=== PATIENT | male | born 1980 | race Caucasian/White ===

== ENCOUNTER 2023-05-08 17:16 | Emergency (ER) | payer OTHER, MEDICAID, SELFPAY ==
[2023-05-08 17:19] VITALS: BP 128/83; PULSE 88; RESP 16; TEMP 36.6; O2SAT 97; BMI 29.0
--- NOTE | 2023-05-08 18:12 | ED.SKABFB ---
HPI - Skin/Abscess/Foreign Bdy General Chief complaint: Skin/Abscess/Foreign Body Stated complaint: Facial problem, Infected hair Time Seen by Provider: 05/08/23 17:58 Source: patient Mode of arrival: Ambulatory History of Present Illness HPI narrative: 43-year-old male nonsmoker with history of multiple prior skin infections presents with a recurrence of a small area of painful red skin on the right side of his cheek. He states that he is had this multiple times off and on for the past year and historically lead improves with doxycycline. At 1 point he had been put on mupirocin which seemed to help somewhat as well. He was most recently on doxycycline a few weeks ago. He has been seen by Dermatology in the past but not recently. He denies any trauma or injury. Denies any fever, chills nor nausea or vomiting. Related Data Previous Rx's Medication Instructions Recorded doxycycline hyclate 100 mg tablet 100 mg PO BID #40 tabs 05/08/23 Allergies Allergy/AdvReac Type Severity Reaction Status Date / Time No Known Drug Allergies Allergy Verified 05/08/23 17:19 Review of Systems Review of Systems Narrative: GENERAL: Denies chills, fatigue, malaise, fever, sweats. HEENT: Denies sinus pain, ear pain, sore throat, difficulty swallowing, dizziness. RESPIRATORY: Denies dyspnea, cough, wheezing, hemoptysis, sputum. CARDIOVASCULAR: Denies chest pain, palpitations, orthopnea, edema, GASTROINTESTINAL: Denies nausea, vomiting, abdominal pain, diarrhea, constipation, melena. : Denies dysuria, frequency, incontinence, hematuria, urinary retention. MUSCULOSKELETAL: denies weakness, joint pain, or bony pain SKIN: See HPI NEUROLOGIC: Denies weakness, headache, numbness, change in speech, confusion, seizures, incoordination. PSYCHIATRIC: No concerning psychosocial issues. 12 point review of systems is negative except for those stated above Patient History Social History Smoking Status: Never smoker Smoking Status: Never smoker alcohol intake frequency: a few times a week Alcohol type: beer Substance Use Type: marijuana Exam Narrative Exam Narrative: GEN: AOx3 and in mild distress EYES: Pupils are equal, round, and reactive to light and accommodation. Extraoccular muscles are intact bilaterally. There is no subconjunctival hemorrhage or exudate. CHEST: Lungs are clear to auscultation bilaterally and free of wheezes, rales, or rhonchi. Heart rate is regular rhythm, there are no murmurs, clicks, rubs, or gallops. There is no chest wall tenderness. ABD: Abdomen is soft and nontender. There is no guarding or rebound. Bowel sounds are normal in all 4 quadrants. There is no mass or organomegaly. EXT: Full painless ROM of all extremities with no loss of sensation or strength. SKIN: Small (quarter sized) area of red, warm, tender skin on R cheek just above his cordova line. No drainage. No induration, fluctuance or drainage. Warm, pink, and dry. No erythema or rash Initial Vital Signs Initial Vital Signs: Vital Signs Temperature 97.8 F 05/08/23 17:19 Pulse Rate 88 05/08/23 17:19 Respiratory Rate 16 05/08/23 17:19 Blood Pressure 128/83 05/08/23 17:19 Pulse Oximetry 97 05/08/23 17:19 Oxygen Delivery Method Room Air 05/08/23 17:19 Course Orders Ordered: Discontinued Medications Doxycycline Hyclate (Doxycycline Hyclate 100 Mg Tablet) 100 mg PO NOW ONE Stop: 05/08/23 18:22 Last Admin: 05/08/23 18:26 Dose: 100 mg Documented By: AT Vital Signs Vital signs: Vital Signs - 8 hr 05/08/23 17:19 Temperature 97.8 F Pulse Rate 88 Respiratory Rate 16 Blood Pressure 128/83 Pulse Oximetry 97 Oxygen Delivery Method Room Air MDM - Skin/Abscess/Foreign Bdy MDM Narrative Medical decision making narrative: 43-year-old male with prior skin infections, typically responding to doxycycline presents with a recurrence of small area of irritated skin with redness and warmth in the absence of drainage, induration or fluctuance. Multiple diagnoses considered including cellulitis versus folliculitis versus abscess versus other. No indication of drainage or area of fluctuance to suggest abscess. Most consistent with cellulitis versus folliculitis. No systemic complaints. No indication for further workup or hospitalization. Patient is appropriate for discharge. We did discuss a slightly longer than typical duration of doxycycline given his history. Questions answered his apparent satisfaction, return precautions discussed including worsening redness, swelling, pain, drainage, difficulty swallowing, difficulty breathing versus other Discharge Plan Departure Patient Disposition: Home Clinical Impression: Cellulitis Instructions: DI for Cellulitis -- Adult Activity Restrictions/Additional Instructions: *You have been diagnosed with [recurrent facial cellulitis] *What to do: *Please continue to take your regular medications as directed. [x ] New medication prescriptions sent to your pharmacy: [ [facility]] [ ] New medication written as a paper prescription [ ] No new medications given *Please follow up with your mainframe software developer in [place], call for an appointment. Let them know you were seen in the Emergency Department and that we ask that you be seen in follow up. *Return to Emergency Department if you should have any new, worsening or concerning symptoms, such as [fever greater than 101 F, shaking chills, worsening pain, persistent vomiting or other bothersome symptoms] Prescriptions: New doxycycline hyclate 100 mg tablet 100 mg PO BID Qty: 40 0RF Stand Alone Forms: Patient Portal/API
[2023-05-08] MEDS: DOXYCYCLINE HYCLATE 100 MG TABLET PO (18:26)
== END 2023-05-08 18:29 | disposition home or self-care (01) ==
PROVIDERS: Emergency Provider Emergency Medicine
DX: L03.211 Cellulitis of face (principal)
CPT/HCPCS: 99283

== ENCOUNTER 2023-06-07 18:08 | Emergency (ER) | payer OTHER, MEDICAID, SELFPAY ==
[2023-06-07 18:14] VITALS: BP 162/102; PULSE 98; RESP 16; TEMP 36.4; O2SAT 99; BMI 29.0
--- NOTE | 2023-06-07 19:23 | ED.SKABFB ---
HPI - Skin/Abscess/Foreign Bdy General Chief complaint: Skin/Abscess/Foreign Body Stated complaint: Left eye infection Time Seen by Provider: 06/07/23 18:13 History of Present Illness HPI narrative: 43-year-old gentleman who was initially seen on May 08 with a rash to the left side of his eye with left eye crusted shut in the morning found that mild bleach solutions(pools hot tubs etc.) seem to help. He was started on doxycycline but the symptoms have not improves and he presents for re-evaluation. He notes this been a problem for the last 10 years intermittently. He is used topical antibiotics oral antibiotics he is seen a television servicer who recommended coconut oil has not had any definitive diagnosis and comes to the emergency department for further evaluation today. He is not describing fevers or visual changes Related Data Previous Rx's Medication Instructions Recorded doxycycline hyclate 100 mg tablet 100 mg PO BID #40 tabs 05/08/23 mupirocin 2 % topical ointment 1 applic topical TID #22 grams 06/07/23 polymyxin B sulfate 10,000 2 drp EYE-RIGHT QID #10 mL 06/07/23 unit-trimethoprim 1 mg/mL eye drops (Polytrim) Allergies Allergy/AdvReac Type Severity Reaction Status Date / Time No Known Drug Allergies Allergy Verified 05/08/23 17:19 Review of Systems Review of Systems Narrative: Pertinent positive and negative findings as per HPI Patient History Social History Smoking Status: Never smoker Smoking Status: Never smoker alcohol intake frequency: a few times a week Alcohol type: beer Substance Use Type: marijuana Exam Initial Vital Signs Initial Vital Signs: Vital Signs Temperature 97.6 F 06/07/23 18:14 Pulse Rate 98 H 06/07/23 18:14 Respiratory Rate 16 06/07/23 18:14 Blood Pressure 162/102 H 06/07/23 18:14 Pulse Oximetry 99 06/07/23 18:14 Oxygen Delivery Method Room Air 06/07/23 18:14 General: Alert , poor focus, perseverating, clearly suffering with the left eye irritation but in no acute distress HEENT: Patient is complaining of the left eye being covered with discharge when he awakes in the morning. Left sclera is slightly injected and there is some mild purulent discharge. Vision is appropriate. Has a minor abrasion on the left inner aspect of the bridge of his nose minor abrasion on the left temporal minor abrasion on the right cheek. There is no deeper infection no redness no drainage no obvious cellulitis Respiratory: Able to speak in full sentences, no obvious respiratory distress Skin: No obvious rashes, warm and dry Neurologic: Grossly intact no obvious asymmetries or abnormalities Psych: appropriate insight and affect, cooperative Course Vital Signs Vital signs: Vital Signs - 8 hr 06/07/23 18:14 Temperature 97.6 F Pulse Rate 98 H Respiratory Rate 16 Blood Pressure 162/102 H Pulse Oximetry 99 Oxygen Delivery Method Room Air MDM - Skin/Abscess/Foreign Bdy MDM Narrative Medical decision making narrative: CC: eye rash worsening Complicating co-morbidities: 10 years of symptoms, multiple courses of antibiotics, follow-up with dermatology all for similar complaint Data collected from: patient, Social determinants of health that may influence the patients condition: Medical records reviewed: ER record from May 08 for similar complaint is reviewed Differential considered: Erysipelas, superficial skin infections, as it is bilateral zoster is unlikely, possibility of methamphetamine use complications (did not specifically ask about history of methamphetamine use) Exam documented above, pertinent findings include: Patient is complaining of the left eye being covered with discharge when he awakes in the morning. Left sclera is slightly injected and there is some mild purulent discharge. Vision is appropriate. Has a minor abrasion on the left inner aspect of the bridge of his nose minor abrasion on the left temporal minor abrasion on the right cheek. There is no deeper infection no redness no drainage no obvious cellulitis Treatments: Prescription for eye drops in the mupirocin ointment Discussion: 43-year-old gentleman with chronic current rash over the surface of his face not immediately infected remainder of skin is not involved. It does appear that his left eye is developing a bacterial conjunctivitis as he has been rubbing at the superficial irritation around the eye. Will give him a prescription for ofloxacin drops and mupirocin ointment. With 10 years of symptoms I have encouraged him to again, follow-up with Dermatology. Biopsy may be appropriate at this point. There is no life-threatening abnormalities no indication for additional lab work or hospitalization. His blood pressure was slightly elevated today will ask him to keep track of this and follow up with his primary care provider if continues to be elevated. He is safe for discharge home Discharge Plan Departure Patient Disposition: Home Clinical Impression: Impetigo, Acute bacterial conjunctivitis of left eye Instructions: DI for Conjunctivitis, DI for Methicillin-Resistant Staph Infection (MRSA) Activity Restrictions/Additional Instructions: Thank you for coming in today Unfortunately, the emergency department is not the best place for a skin infection that has been bothering for the last 10 years. I suspect that your left eye has a bacterial conjunctivitis as you have been rubbing at it a bit. I have prescribed you some eyedrops to use for this. Which with each of the small skin infections there is a possibility that this is MRSA and I have given you topical antibiotic ointment. At this point there is no indication of cellulitis you do not need oral antibiotics. Prescriptions were electronically transmitted to [facility] for you to olive picker this evening Your blood pressure was elevated today, this isn't uncommon when your hurting however I would recommend that you check your blood pressure when you are feeling better and make sure that numbers are consistently in the 120/70 range. If they are higher than that, you do need to follow-up with your primary care doctor For the continued skin complaints, I would recommend seeing a television servicer. As you did not like the recommendations from the 1 you have seen, I would recommend trying a different physician. If you find that you are getting worse or develop any new symptoms, please feel free to return to the emergency department for further evaluation. Prescriptions: New mupirocin 2 % ointment 1 applic topical TID Qty: 22 0RF polymyxin B sulf-trimethoprim [Polytrim] 10,000 unit- 1 mg/mL drops 2 drp EYE-RIGHT QID Qty: 10 0RF No Action doxycycline hyclate 100 mg tablet 100 mg PO BID Qty: 40 0RF Stand Alone Forms: Patient Portal/API
[2023-06-07 19:49] VITALS: BP 128/81; PULSE 95; RESP 14; O2SAT 96
== END 2023-06-07 19:50 | disposition home or self-care (01) ==
PROVIDERS: Emergency Provider Emergency Medicine
DX: L01.00 Impetigo, unspecified (principal); H10.32 Unspecified acute conjunctivitis, left eye
CPT/HCPCS: 99281; 99282